=== PATIENT | male | born 1985 | race Caucasian/White ===

== ENCOUNTER 2023-03-03 09:16 | Outpatient (CLI) | payer OTHER ==
--- NOTE | 2023-03-04 13:58 | MRI Report ---
PROCEDURE: SHOULDER WO - RT INDICATIONS: RIGHT SHOULDER PAIN TECHNIQUE: Noncontrast oblique coronal T2 fast spin echo with fat saturation, oblique sagittal T1 spin echo and T2 fast spin echo with fat saturation, axial T1 spin echo and T2 fast spin echo with fat saturation t hrough the shoulder. COMPARISON: None. FINDINGS: Image quality: Excellent. Rotator cuff: There is moderate supraspinatus and infraspinatus tendinosis. There is partial-thicknes s tear of the distal supraspinatus tendon from the musculotendinous junction to footprint, involving the both articular and bursal surfaces. There is mild subscapularis tendinosis without discrete tend on tear. No rotator cuff muscle atrophy on sagittal images. Bones and bursae: No bone marrow contusions or fractures. Mild acromioclavicular and glenohumeral pieter int degeneration. The acromion demonstrates conventional anatomy, without an os acromiale. No patho logic subacromial/subdeltoid bursal fluid is present. Capsule and soft tissues: Mild fraying of the anterior labrum. In the absence of intra-articular con trast, the glenohumeral ligaments appear intact. The long head of the biceps tendon demonstrates nor mal location and morphology. The rotator interval appears normal, without fibrosis. The coracohumer al ligament is normal in thickness. IMPRESSION: 1. Moderate supraspinous and infraspinatus tendinosis with partial-thickness tear. No tendon rupture or muscle atrophy. 2. Mild subscapularis tendinosis. 3. Mild acromioclavicular joint degeneration. 4. Mild anterior glenoid labral fraying. Reviewed by: Maryanne Neal MD on 03/04/2023 1:57 PM PDT Approved by: Maryanne Neal MD on 03/04/2023 1:57 PM PDT Station ID: [id number]
== END 2023-03-03 09:17 | disposition home or self-care (01) ==
LOC: DI 09:16
PROVIDERS: ATTEND Student in an Organized Health Care Education/Training Program
DX: M75.111 Incomplete rotator cuff tear or rupture of right shoulder, not specified as traumatic (principal); M67.813 Other specified disorders of tendon, right shoulder; M19.011 Primary osteoarthritis, right shoulder

== ENCOUNTER 2023-03-25 14:33 | Outpatient (CLI) | payer OTHER ==
--- NOTE | 2023-03-25 15:23 | Sleep Patient Instructions ---
Sleep Center Visit Summary - Patient Visit Information Reason for Visit: Initial consult for evaluation of sleep disordered breathing and other sleep issues. - Patient Instructions Instructions Attached: Sleep Study, Sleep Clinic Visit, Sleep Study Home Monitor Additional Instructions: You will be completing a sleep study, either an in-lab polysomnography (PSG) or home sleep study (HST). You will follow-up in the sleep care office after the sleep study is completed to hear the results and talk about therapy, if needed. You will be called by our office staff to schedule this appointment, but you may contact us with any questions. - Clinic Information Contact: [facility] [address] [place] [address] [email or web address] T: [phone]
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
[2023-03-25 15:31] VITALS: BP 118/66; O2SAT 96
== END 2023-03-25 14:34 | disposition home or self-care (01) ==
LOC: SC 14:33
PROVIDERS: ATTEND Nurse Practitioner Family
DX: R06.83 Snoring (principal); R51.9 Headache, unspecified; G47.8 Other sleep disorders; R41.89 Other symptoms and signs involving cognitive functions and awareness
CPT/HCPCS: 99203; 99212

== ENCOUNTER 2023-05-13 20:30 | Outpatient (CLI) | payer OTHER | END 2023-05-13 20:31 | disposition home or self-care (01) | LOC: SC 20:30 | PROVIDERS: ATTEND Nurse Practitioner Family | DX: R06.83 Snoring (principal); G47.61 Periodic limb movement disorder; F32.A Depression, unspecified | CPT/HCPCS: 95810 ==

== ENCOUNTER 2023-05-28 14:40 | Outpatient (CLI) | payer OTHER ==
--- NOTE | 2023-05-28 14:29 | SLEEP CARE CONSULTATION ---
Information from patient questionnaire entered by Jane Srinivasan. I have reviewed and concur with the information entered by Jane Srinivasan. This document represents the service I personally performed and the decisions made by , Mirna Rueda ARNP. History of Present Illness Service Date and Time: 05/28/2023 1400 Initial [place] Sleepiness Scale score: 8 (03/25/23) Current [place] Sleepiness Scale score: 9 (05/27/2023) Additional HPI information: DIANNE RIOS returns for follow up and results of the recently performed polysomnography. The patient was informed of the following findings: No significant sleep disordered breathing with an average AHI of 0.2 and sarbjit oxygen saturation of 88%. He has severe PLMs contributing to sleep fragmentation. I explained the pathophysiology behind obstructive sleep apnea. Patient does not have sleep apnea and was advised how weight gain could increase the risk of developing sleep apnea in the future. Patient has light to loud snoring. Snoring can be reduced by weight loss. Weight loss is best achieved with diet consult. Patient instructed to contact PCP for referral. Snoring can also be treated with an oral appliance from a dentist. Advised to check insurance coverage. In addition, an ENT evaluation can be do to see if other treatment is indicated. Patient counseled not drink alcohol less than 4 hours before bedtime as it can increase snoring and apnea. Patient was cautioned about risks of drowsy driving until sleepiness symptoms resolve. Patient denies drowsy driving. Sleep Study - Results Type of Sleep Study: Polysomnography (COMPLETED 05/13/23) Prior sleep studies: No Polysomnography/Home Sleep Study results: IMPRESSION: The quality of the study is good. The patient had slightly reduced sleep efficiency due to several awakenings during the night. The sleep architecture was abnormal for sleep fragmentation and reduced amount of time spent in REM and slow wave sleep (N3). Respiratory monitoring showed no significant sleep disordered breathing (AHI = 0.2) or hypoxia (sarbjit oxygen saturation of 88%). The patient slept adequately in supine position (supine AHI = 0.0; non-supine = 0.21). Snore was light to loud in intensity. There was severe periodic leg movement of sleep contributing to the sleep fragmentation. Cardiac rhythm was normal sinus rhythm without significant arrhythmia. No abnormal behavior (parasomnia) observed during the night. Allergies and Home Medications Known drug allergies: No Drug allergies reviewed: Yes Home medication list reviewed: Yes (Wellbutrin 300 mg) Allergy and home medication list: Allergies No Known Drug Allergies Allergy (Verified 05/27/23 09:38) Review of Systems Review of systems same as previous: Yes (NO CHANGE) Physical Exam Vital signs obtained and entered by: JANE Roberts MA Blood Pressure: 127/82 (PER PT) Height: 6 ft (PER PT) Weight: 182 lb (PER PT) Body Mass Index: 24.7 BMI Classification: Normal Impression and Plan 1. Periodic limb movement, severe, that did contribute to sleep fragmentation. Periodic limb movement of sleep (PLMS) is characterized by episodes of repetitive limb movements that occur during sleep and usually involve the lower limbs. The etiology is unknown but can be associated with restless leg syndrome (RLS), neuropathy, spinal cord diseases, kidney disease, rheumatological disorders, narcolepsy, obstructive sleep apnea, and REM sleep behavior disorder. Caffeine can also aggravate PLMS and should be avoided. Sleep hygiene methods can also improve sleep as well as lifestyle changes such as regular exercise. Patient was advised to followup with PCP for further evaluation as needed. 2. Snoring but no significant sleep disordered breathing. Patient advised that often weight loss will reduce snoring as well as apnea risk. An oral appliance can also be used for snoring. This would require a dental consultation. Patient cautioned not to use other online appliances as can cause bite issues. Patient is advised to check if insurance will cover. An ENT consult can also be helpful to determine if any other treatment is an option. * Followup with PCP for severe PLMs as needed * Avoid alcohol consumption near bedtime * The patient is cautioned about driving until sleepiness is completely resolved. * Return as needed for follow up. Follow up with Sleep Care in: as needed Visit Type: In Office Time Spent with Patient (minutes): 20 Provider Statement: I spent 100% of the Face to Face Visit with the patient with greater than 50% spent counseling the patient and coordination of care.
[2023-05-28 14:31] VITALS: BP 127/82
== END 2023-05-28 14:41 | disposition home or self-care (01) ==
LOC: SC 14:40
PROVIDERS: ATTEND Nurse Practitioner Family
DX: G47.61 Periodic limb movement disorder (principal); R06.83 Snoring

== ENCOUNTER 2023-08-10 08:45 | Outpatient (CLI) | payer OTHER ==
--- NOTE | 2023-08-10 13:22 | MRI Report ---
PROCEDURE: LUMBAR SPINE WO INDICATIONS: DORSALGIA TECHNIQUE: Noncontrast sagittal T1 spin echo and T2 fast echo, sagittal STIR, axial T1 and T2 fast spin echo thr ough the lumbar spine. In cases with scoliosis, additional coronal T2 fast spin echo may be performe d. COMPARISON: None. FINDINGS: Image quality: Excellent. Alignment and Curvature: There is normal bony alignment. Bone Marrow: Marrow is of normal overall signal. No acute vertebral body compression fractures. Spinal Cord: Conus medullaris terminates at the L1 level. Visualized cord demonstrates normal signa l and size. Paraspinous Soft Tissues: No paravertebral masses. T12-L1: Normal in appearance. L1-L2: Normal in appearance. L2-L3: Mild chronic disc height loss. Minimal very flat broad based posterior disc extrusion witho ut canal stenosis. No foraminal stenosis. L3-L4: Very mild facet hypertrophy. No canal stenosis or significant foraminal stenosis. L4-L5: Mild facet hypertrophy. No canal stenosis or significant foraminal stenosis. L5-S1: Minimal facet hypertrophy. Mild disc bulge. No canal stenosis or significant foraminal steno sis. IMPRESSION: 1. No canal stenosis or significant foraminal stenosis. 2. Relatively mild lower lumbar facet arthropathy. 3. Minimal disc extrusion at L2-L3 without canal stenosis. Reviewed by: Gabriele Crowell MD on 08/10/2023 1:21 PM PST Approved by: Gabriele Crowell MD on 08/10/2023 1:21 PM PST Station ID: [id number]
--- NOTE | 2023-08-10 13:49 | MRI Report ---
PROCEDURE: SHOULDER WO - LT INDICATIONS: DORSALGIA, SHOULDER PAIN TECHNIQUE: Noncontrast oblique coronal T2 fast spin echo with fat saturation, oblique sagittal T1 spin echo and T2 fast spin echo with fat saturation, axial T1 spin echo and T2 fast spin echo with fat saturation t hrough the shoulder. COMPARISON: None. FINDINGS: Image quality: Excellent. Rotator cuff: Low to moderate grade articular and bursal surface partial-thickness involving distal s upraspinatus at its insertion on humeral head is seen extending to muscular tendinous junction. Low-g rade articular surface partial-thickness involving distal infraspinatus at its insertion on humeral h ead is also noted. The subscapularis tendon is grossly intact. No full-thickness rotator cuff tendon rupture. No rotator cuff muscle atrophy on sagittal images. Bones and bursae: No bone marrow contusions or fractures. Mild acromioclavicular joint osteoarthriti c changes are seen with small downward osteophyte formation depressing on musculotendinous junction o f supraspinatus. The acromion demonstrates conventional anatomy, without an os acromiale. Small amoun t of subacromial subdeltoid bursal fluid is present, no gross loose bodies. Capsule and soft tissues: In the absence of intra-articular contrast, the labrum and glenohumeral li gaments appear intact. The long head of the biceps tendon demonstrates normal location and morpholog y. The rotator interval appears normal, without fibrosis. The coracohumeral ligament is normal in t hickness. IMPRESSION: 1. Mild to moderate grade articular and bursal surface partial-thickness involving distal supraspinat us at its insertion on humeral head extending to muscular tendinous junction. Low-grade articular ambrose face partial-thickness involving distal infraspinatus. No full-thickness rotator cuff tendon rupture. 2. Mild acromioclavicular joint osteoarthritis. No fracture or dislocation. Small amount of subacromi al subdeltoid bursal fluid, no gross loose bodies. 3. No evidence of focal labral tear. Reviewed by: Harley Schaeffer MD on 08/10/2023 1:48 PM PST Approved by: Harley Schaeffer MD on 08/10/2023 1:48 PM PST Station ID: [id number]
== END 2023-08-10 08:46 | disposition home or self-care (01) ==
LOC: DI 08:45
PROVIDERS: ATTEND Nurse Practitioner Family
DX: M51.26 Other intervertebral disc displacement, lumbar region (principal); M47.816 Spondylosis without myelopathy or radiculopathy, lumbar region; M47.817 Spondylosis without myelopathy or radiculopathy, lumbosacral region; M75.112 Incomplete rotator cuff tear or rupture of left shoulder, not specified as traumatic; M19.012 Primary osteoarthritis, left shoulder

== ENCOUNTER 2023-09-14 09:10 | Outpatient (CLI) | payer OTHER ==
[~2023-09-14 09:10] MED LIST: BUPIVACAINE 0.5% PF 10 ML VIAL ONE; LIDOCAINE-MPF 1% 5 ML VIAL ONE; TRIAMCINOLONE 40 MG/ML VIAL ONE
[2023-09-14] MEDS: LIDOCAINE-MPF 1% 5 ML VIAL SUBQ ONE (11:03)
[2023-09-14] MEDS: BUPIVACAINE 0.5% PF 10 ML VIAL SUBQ ONE (11:04)
[2023-09-14] MEDS: TRIAMCINOLONE 40 MG/ML VIAL IM ONE (11:04)
--- NOTE | 2023-09-14 14:32 | Ultrasound Report ---
PROCEDURE: Injection Single Tendon INDICATIONS: PAIN IN RIGHT SHOULDER TECHNIQUE: The indications, alternatives, benefits, risks, and complications of the procedure were explained to the patient. Written informed consent was obtained and placed in the chart. The patient was placed in an appropriate position on the fluoroscopy table, and a site was chosen for percutaneous access un betsey ultrasound guidance. Local anesthetic was administered using a 1% lidocaine solution. A hypoder natali or spinal needle was then used to access the symptomatic joint. Intra-articular location of the needle tip was confirmed by real time ultrasound imaging, followed by steroid administration. The ne edle was then withdrawn, and a bandage applied to the puncture site. FINDINGS: Joint injected: Right shoulder biceps tendon sheath Medications injected: 4 mL of 40 mg/mL Kenalog and 0.5% Ropivacaine mixture. Complications: None. IMPRESSION: Successful ultrasound guided administration of steroid and anaesthetic solution into the right shoulder biceps tendon sheath. Reviewed by: Favian Yanez MD on 09/14/2023 2:30 PM PST Approved by: Favian Yanez MD on 09/14/2023 2:30 PM PST Station ID: [id number]
== END 2023-09-14 09:11 | disposition home or self-care (01) ==
LOC: DI 09:10
PROVIDERS: ATTEND Orthopaedic Surgery
DX: M25.511 Pain in right shoulder (principal)
CPT/HCPCS: 20550

== ENCOUNTER 2023-12-29 08:33 | Outpatient (CLI) | payer OTHER ==
[2023-12-29] MEDS: LIDOCAINE-MPF 1% 5 ML VIAL TD ONE (09:38)
[2023-12-29] MEDS: BUPIVACAINE 0.5% PF 10 ML VIAL IM ONE (09:39)
[2023-12-29] MEDS: TRIAMCINOLONE 40 MG/ML VIAL IM ONE (09:40)
--- NOTE | 2023-12-29 11:49 | Ultrasound Report ---
PROCEDURE: Injection Single Tendon INDICATIONS: L SHOULDER PAIN TECHNIQUE: The indications, alternatives, benefits, risks, and complications of the procedure were explained to the patient. Written informed consent was obtained and placed in the chart. The patient was placed in an appropriate position on the fluoroscopy table, and a site was chosen for percutaneous access un betsey ultrasound guidance. Local anesthetic was administered using a 1% lidocaine solution. A hypoder natali or spinal needle was then used to access the symptomatic joint. Intra-articular location of the needle tip was confirmed by real time ultrasound imaging, followed by steroid administration. The ne edle was then withdrawn, and a bandage applied to the puncture site. FINDINGS: Joint injected: Left bicipital groove biceps tendon sheath Medications injected: 2 mL of 40 mg/mL Kenalog and 0.5% Ropivacaine mixture. Complications: None. IMPRESSION: Successful ultrasound guided administration of steroid and anaesthetic solution into the left biceps tendon sheath. Reviewed by: Kenneth De La O MD on 12/29/2023 11:48 AM PDT Approved by: Kenneth De La O MD on 12/29/2023 11:48 AM PDT Station ID: [id number]
== END 2023-12-29 08:34 | disposition home or self-care (01) ==
LOC: DI 08:33
PROVIDERS: ATTEND Orthopaedic Surgery
DX: M25.512 Pain in left shoulder (principal)
CPT/HCPCS: 20550

== ENCOUNTER 2024-04-12 13:34 | Outpatient (CLI) | payer OTHER ==
[~2024-04-12 13:34] MED LIST changes: -BUPIVACAINE 0.5% PF 10 ML VIAL ONE
[2024-04-12] MEDS ORDERED: BUPIVACAINE 0.5% PF 10 ML VIAL ONE (13:35)
[2024-04-12] MEDS ORDERED: LIDOCAINE-MPF 1% 5 ML VIAL ONE (14:16)
--- NOTE | 2024-04-12 15:51 | Ultrasound Report ---
PROCEDURE: Injection Single Tendon INDICATIONS: Left biceps tendon sheath steroid injection for biceps tenosynovitis TECHNIQUE: The indications, alternatives, benefits, risks, and complications of the procedure were explained to the patient. Written informed consent was obtained and placed in the chart. The patient was placed in an appropriate position on the fluoroscopy table, and a site was chosen for percutaneous access un betsey ultrasound guidance. Local anesthetic was administered using a 1% lidocaine solution. A 25-gauge 1.5 " needle was then used to access the tendon sheath of the long head of the biceps tendon. Intra -articular location of the needle tip was confirmed by real time ultrasound imaging, followed by ster oid administration. The needle was then withdrawn, and a bandage applied to the puncture site. FINDINGS: Injection target: Left biceps tendon sheath Medications injected: 1 mL of 40 mg/mL Kenalog, followed by a 1 mL mixture of equal parts 1% lidocai ne and 0.5% bupivacaine. Complications: None. IMPRESSION: Successful ultrasound guided administration of steroid and anaesthetic solution into the left biceps tendon sheath. Reviewed by: Gray Muñiz MD on 04/12/2024 3:50 PM PDT Approved by: Gray Muñiz MD on 04/12/2024 3:50 PM PDT Station ID: [id number]
[2024-04-12] MEDS: TRIAMCINOLONE 40 MG/ML VIAL IM ONE (16:10)
[2024-04-12] MEDS: LIDOCAINE-MPF 1% 5 ML VIAL TD ONE (16:10)
[2024-04-12] MEDS: BUPIVACAINE 0.5% PF 10 ML VIAL IM ONE (16:11)
== END 2024-04-12 13:35 | disposition home or self-care (01) ==
LOC: DI 13:34
PROVIDERS: ATTEND Nurse Practitioner Family
DX: M25.511 Pain in right shoulder (principal)
CPT/HCPCS: 20550